=== PATIENT | female | born 1975 | race African-American/Black ===

== ENCOUNTER 2021-09-12 05:10 | Emergency (ER) | payer SELFPAY ==
[~2021-09-12] VITALS: Ht 152.4 cm; Wt 121.6 kg
[2021-09-12 05:45] VITALS: BP 156/118
--- NOTE | 2021-09-12 05:52 | NUR ---
PT TO [facility]OBBY A/W EVALUATION
--- NOTE | 2021-09-12 06:07 | NUR ---
CALL RECEIVED FROM ADM KESHAVIT WHO STATED PT LEFT FACILITY. PATIENT LEFT WITHOUT BEING SEEN BY DR. JOAQUIN. NO FURTHER CARE PROVIDED FOR PATIENT.
== END 2021-09-12 06:07 | disposition left against medical advice (07) ==
LOC: MED 05:10
DX: R11.2 Nausea with vomiting, unspecified (principal); Z53.21 Procedure and treatment not carried out due to patient leaving prior to being seen by health care provider
CPT/HCPCS: 81002; 81025